=== PATIENT | male | born 1965 | race Caucasian/White ===

== ENCOUNTER 2017-02-18 13:56 | Emergency (ER) | payer MEDICAID, OTHER ==
[~2017-02-18] VITALS: Ht 182.9 cm; Wt 77.1 kg
[~2017-02-18 13:56] MED LIST: SULF1TAB48 PO
[2017-02-18] MEDS ORDERED: HYDROCODONE/APAP 5-325MG TABLET PO ONE (14:15)
[2017-02-18] MEDS ORDERED: TDAP DIPH,PERTUSS,TET VAC/PF 0.5 ML DISP.SYRIN IM ONE ×2 (14:15→14:21)
[2017-02-18] MEDS ORDERED: AMOXICILLIN-CLAVUL 875-125MG TABLET PO ONE (14:15)
[2017-02-18] MEDS ORDERED: AMOXICILLIN-CLAVUL 875-125MG TABLET ONE (14:21)
[2017-02-18] MEDS ORDERED: HYDROCODONE/APAP 5-325MG TABLET ONE (14:21)
--- NOTE | 2017-02-18 14:58 | NUR ---
Patient discharged to home in stable conditon. Written and verbal after care instructions given. Patient verbalizes understanding of instructions. Stressed follow up.
== END 2017-02-18 14:59 | disposition home or self-care (01) ==
LOC: ER 13:57
DX: S60.221A Contusion of right hand, initial encounter (principal); J45.909 Unspecified asthma, uncomplicated; F31.9 Bipolar disorder, unspecified; F10.20 Alcohol dependence, uncomplicated; F19.10 Other psychoactive substance abuse, uncomplicated; C44.90 Unspecified malignant neoplasm of skin, unspecified; M19.90 Unspecified osteoarthritis, unspecified site; W50.3XXA Accidental bite by another person, initial encounter; Y93.89 Activity, other specified; Y99.8 Other external cause status; Y92.89 Other specified places as the place of occurrence of the external cause
CPT/HCPCS: 29125; 73110; 73130; 90471; 90715; 99284; A4663; J7030

== ENCOUNTER 2017-09-26 22:48 | Inpatient (IN) | payer OTHER ==
[~2017-09-26] VITALS: Ht 177.8 cm; Wt 81.6 kg
[2017-09-26] MEDS ORDERED: HYDROMORPHONE 1 MG/1 ML DISP.SYRIN IV ONE (23:00)
[2017-09-26] MEDS ORDERED: PROCHLORPERAZINE EDISYLATE 10 MG/2 ML VIAL IV ONE (23:00)
[2017-09-26] MEDS ORDERED: diphenhydrAMINE 50 MG/1 ML VIAL IV ONE (23:00)
[2017-09-26] MEDS ORDERED: GLUCAGON,HUMAN RECOMBINANT 1 MG VIAL IVP ONE (23:00)
[2017-09-26] MEDS ORDERED: LORAZEPAM 2 MG/1 ML VIAL IV ONE (23:00)
--- NOTE | 2017-09-26 23:00 | NUR ---
Pt ambulated to room with steady gait. Pt c/o feeling like something stuck in his throat. Pt sts he thinks it is a piece of steak. Pt sts he thinks a swallow piece of his dentures a week ago and thinks that might be why the steak is caught in his throat. Pt in severe distress as evidence by restless, tearful, sts " I cant breath", diaphortic, tachycardic, vomiting, and hyperventilating. Pt changed into gown and placed on monitor. Dr. Oneil at bedside for MSE
[2017-09-26] MEDS ORDERED: PROCHLORPERAZINE EDISYLATE 10 MG/2 ML VIAL ONE (23:22)
[2017-09-26] MEDS ORDERED: diphenhydrAMINE 50 MG/1 ML VIAL ONE (23:22)
[2017-09-26] MEDS ORDERED: GLUCAGON,HUMAN RECOMBINANT 1 MG VIAL ONE (23:22)
[2017-09-26] MEDS ORDERED: LORAZEPAM 2 MG/1 ML VIAL ONE (23:23)
[2017-09-26] MEDS ORDERED: HYDROMORPHONE 4 MG/1 ML DISP.SYRIN ONE (23:23)
--- NOTE | 2017-09-26 23:55 | NUR ---
Difficulty establishing IV due to pt's history of IV drug abuse. After multiple attempts 20g to the R. axilla obtained. Labs drawn and sent. Pt medicated for discomfort, will monitor for effects of medication.
[2017-09-27 00:03] LABS: BASOPHILS # (AUTO) 0.1 K/uL (0.0-8.0); BASOPHILS % (AUTO) 1.6 % (0.0-2.0); EOSINOPHILS # (AUTO) 0.3 K/uL (0.0-0.7); EOSINOPHILS % (AUTO) 4.6 % (0.0-7.0); HEMATOCRIT 39.9 % (40-50); LYMPHOCYTES # (AUTO) 1.2 K/UL (0.8-4.8); LYMPHOCYTES % (AUTO) 18.8 % (20.5-51.5); MEAN CORPUSCULAR HGB CONC 33 g/dL (32.0-37.0); MONOCYTES # (AUTO) 0.5 K/UL (0.1-1.30); MONOCYTES % (AUTO) 7.9 % (0.0-11.0); NEUTROPHILS # (AUTO) 4.5 K/UL (1.8-8.9); NEUTROPHILS % (AUTO) 67.1 % (38.5-71.5); PLATELET COUNT (AUTO) 334 K/UL (150-450); RED BLOOD CELL COUNT(AUTO) 4.64 MIL/UL (4.7-6.1); WHITE BLOOD COUNT (AUTO) 6.6 K/UL (4.0-11.2)
[2017-09-27 00:21] LABS: BILIRUBIN,DIRECT 0.1 mg/dL (0.0-0.2); BILIRUBIN,TOTAL 0.4 mg/dL (0.2-1.0); CREATININE 0.8 mg/dL (0.6-1.3); POTASSIUM 3.3 mmol/L (3.5-5.1); TOTAL PROTEIN, SERUM 8.5 g/dL (6.4-8.2)
--- NOTE | 2017-09-27 00:30 | NUR ---
Pt placed on O2 to maintain sats > 95%. Pt's distress resolved, pt sedated. Pt resting in a position of comfort for self with eyes closed, able to wake with moderate tactile stimulation. No further vomiting noted, pt no longer diaphortic and resp even. Pt NSR on monitor. BP improved from initial reading. Admission pending.
--- NOTE | 2017-09-27 01:29 | NUR ---
[employer] technologist paged for Dr. Oneil
--- NOTE | 2017-09-27 01:30 | NUR ---
Dr. Oneil aware of pt's potassium level. No further orders given to correct. Pt unable to swallow for any PO medication and due to location of IV Dr. Oneil not wanting to given IV medication.
--- NOTE | 2017-09-27 01:39 | NUR ---
Dr. Oneil speaking with Dr. Smith for admission
[2017-09-27] MEDS ORDERED: HYDROMORPHONE 1 MG/1 ML DISP.SYRIN IV PRN (01:45)
[2017-09-27] MEDS ORDERED: ONDANSETRON 4 MG/2 ML VIAL IV PRN (01:45)
[2017-09-27] MEDS ORDERED: ACETAMINOPHEN 650 MG SUPP.RECT RC PRN (01:45)
--- NOTE | 2017-09-27 02:00 | NUR ---
Report given to JYOTI Sage. Preparing to transfer pt to the floor.
[2017-09-27 03:00] VITALS: BP 126/77
--- NOTE | 2017-09-27 03:00 | NUR ---
RN Notes: pt received from ED with a DX of impacted esophageal foreign body. A&O X 3. on room air ,sating well. VSS. connected to the commercial fisher , NSR. denies pain. pt's wants to keep his belongings with him. will continue to monitor for any changes.
[2017-09-27 04:00] VITALS: BP 126/77
[2017-09-27] MEDS: POTASSIUM CHLORIDE 20 MEQ in IV D5/ 0.9% NACL 1,000 ML IV PRN (04:43)
--- NOTE | 2017-09-27 06:35 | NUR ---
END OF SHIFT SUMMERY: pt is A&O X 4, on room air,sating well. VSS, denies pain. still NSR on the media monitor. no acute /cardiac/respiratory distress noted. will continue to monitor and endorse pt to the next nurse to continue the care. Addendum: 09/27/17 at 0644 by CATHERINE CARDENAS RN END OF SHIFT SUMMERY: pt is A&O X 4, on room air,sating well. VSS, denies pain. still NSR on the media monitor. pt refused the AM labs. no acute /cardiac/respiratory distress noted. will continue to monitor and endorse pt to the next nurse to continue the care.
[2017-09-27] MEDS ORDERED: FOLIC ACID 1 MG in IV DEXTROSE 5% 50 ML IV SCH (08:00)
[2017-09-27] MEDS ORDERED: HYDROMORPHONE 4 MG/1 ML DISP.SYRIN IV PRN (08:15)
[2017-09-27] MEDS: FAMOTIDINE. 20 MG/2 ML VIAL IV SCH ×2 (09:24→21:10)
[2017-09-27 10:47] VITALS: BP 131/78
--- NOTE | 2017-09-27 11:30 | NUR ---
Received nursing report from the am nurse
[2017-09-27] MEDS ORDERED: HYDROMORPHONE 4 MG/1 ML DISP.SYRIN IM PRN (14:15)
--- NOTE | 2017-09-27 15:00 | NUR ---
midline upper right arm 18g placement
[2017-09-27 15:54] VITALS: BP 145/88
[2017-09-27] MEDS: LORAZEPAM 2 MG/1 ML VIAL IV PRN ×2 (16:08→21:29)
[2017-09-27] MEDS ORDERED: MORPHINE SULFATE 4 MG/1 ML DISP.SYRIN IM PRN (16:15)
[2017-09-27] MEDS: THIAMINE HCL INJ 100 MG in IV DEXTROSE 5% 50 ML IV SCH (17:50)
--- NOTE | 2017-09-27 18:00 | NUR ---
Thiamine medication administered late. Pharmacy aware. Received client around 1130am. Upper IV line not flushing. Midline insertion on the upper right arm 18g inserted around 1500 hrs.
[2017-09-27] MEDS: MORPHINE SULFATE 4 MG/1 ML DISP.SYRIN IV PRN ×2 (18:11→21:25)
--- NOTE | 2017-09-27 19:17 | NUR ---
client in bed asleep comfortably, no s/s of pain, distress, discomfort or SOB
--- NOTE | 2017-09-27 19:45 | NUR ---
ALERT ORIENTED, CONT ON PAIN MANAGEMENT, MIDLINE ON R UPPER ARM INTACT, CONT TO MONITOR.
[2017-09-27 20:51] VITALS: BP 133/79
[2017-09-28] MEDS: MORPHINE SULFATE 4 MG/1 ML DISP.SYRIN IV PRN ×3 (01:03→08:17)
[2017-09-28] MEDS ORDERED: MORPHINE SULFATE 4 MG/1 ML DISP.SYRIN ONE (01:08)
[2017-09-28] MEDS: LORAZEPAM 2 MG/1 ML VIAL IV PRN ×2 (01:50→11:08)
[2017-09-28] MEDS ORDERED: MORPHINE SULFATE 10 MG/1 ML DISP.SYRIN ONE (04:15)
[2017-09-28 04:32] VITALS: BP 153/93
--- NOTE | 2017-09-28 07:03 | NUR ---
PATIENT SLEPT MOST OF THE NIGHT, CONT ON PAIN MANAGEMENT, CONT TO MONITOR.
--- NOTE | 2017-09-28 07:40 | NUR ---
Received nursing report from the NIGHT nurse PT [email or web address].
[2017-09-28] MEDS: POTASSIUM CHLORIDE 20 MEQ in IV D5/ 0.9% NACL 1,000 ML IV PRN (07:42)
[2017-09-28] MEDS: THIAMINE HCL INJ 100 MG in IV DEXTROSE 5% 50 ML IV SCH (07:47)
[2017-09-28] MEDS: FAMOTIDINE. 20 MG/2 ML VIAL IV SCH (08:12)
--- NOTE | 2017-09-28 08:30 | NUR ---
PT WAS SMOKING IN THE BATHROOM ,NSG SUPER VISOR AND CHARGE NURSE MADE AWARE,EXPLAIN THE PT ABOUT NOT SMOKING IN THE ROOM ,REMOVED THE CIGARETTE AND LITER
[2017-09-28] MEDS ORDERED: FOLIC ACID 1 MG TABLET PO SCH (09:00)
[2017-09-28 11:42] VITALS: BP 157/100
[2017-09-28] MEDS ORDERED: NICOTINE 7 MG/24HR PATCH TD SCH (12:15)
--- NOTE | 2017-09-28 13:41 | NUR ---
PT REFUSING THE TREATMENT AND WANTS TO GO [facility] MADE AWARE AND NURSING WATERMASTER MADE AWARE,D/C MIDLINE
--- NOTE | 2017-09-28 13:43 | NUR ---
PT LEFT AMA ,CUT THE NAME TAG AND D/C THE MIDLINE EXPLAIN THE PT CONTRA INDICATIONS ,PT REFUSED FOR THE TREATMENT AND LEFT THE HOSPITAL VIA WALKING WITH PROPER CLOTHS IN STABLE CONDITION..
== END 2017-09-28 13:45 | disposition left against medical advice (07) | DRG 254 ==
LOC: ER 22:51 → TELE 09-27 00:30 → MED 09-27 14:39
PROVIDERS: ADMIT Internal Medicine; ATTEND Internal Medicine
PROC: 05H533Z Insertion of Infusion Device into Right Subclavian Vein, Percutaneous Approach (ICD-10-PCS; principal; 2017-09-27)
DX: T18.9XXA Foreign body of alimentary tract, part unspecified, initial encounter (principal); E44.0 Moderate protein-calorie malnutrition; E88.09 Other disorders of plasma-protein metabolism, not elsewhere classified; R13.10 Dysphagia, unspecified; E78.5 Hyperlipidemia, unspecified; E86.0 Dehydration; E87.6 Hypokalemia; F17.210 Nicotine dependence, cigarettes, uncomplicated; F41.9 Anxiety disorder, unspecified; J45.909 Unspecified asthma, uncomplicated; X58.XXXA Exposure to other specified factors, initial encounter; Y93.9 Activity, unspecified; Z59.0 Homelessness; L02.413 Cutaneous abscess of right upper limb; Z68.25 Body mass index [BMI] 25.0-25.9, adult; F11.23 Opioid dependence with withdrawal; Y92.9 Unspecified place or not applicable
CPT/HCPCS: 36415; 71010; 74000; 83690; 85025; 93005; A4663; A9150; J0780; J1170; J1200; J1610; J2060; J2270; J2405; J3411; J3480; J3490; J7042; J7060

== ENCOUNTER 2018-12-01 15:54 | Emergency (ER) | payer OTHER ==
[~2018-12-01] VITALS: Ht 177.8 cm; Wt 83.0 kg
--- NOTE | 2018-12-01 16:10 | NUR ---
First contact with patient. Pt is awake,alert and oriented, pt states accidental overdose of Heroin. Pt was given Narcan 4mg in route to ER. Pt refused blood draw, notified.
[2018-12-01] MEDS ORDERED: IV NORMAL SALINE 1000 ML BAG IV ONE (16:15)
[2018-12-01] MEDS ORDERED: QUET100T PO (16:16)
[2018-12-01] MEDS ORDERED: OXCA300T4 PO (16:16)
[2018-12-01] MEDS ORDERED: ALBU18HF2 INH (16:16)
[2018-12-01] MEDS ORDERED: CITA20TA19 PO (16:16)
[2018-12-01] MEDS ORDERED: QUET50TA PO (16:16)
--- NOTE | 2018-12-01 16:45 | NUR ---
[employer] at bedside talking with pt.
--- NOTE | 2018-12-01 17:00 | NUR ---
Pt was offered option for halfway and resources but pt declined. Pt was also offered/provided items in accordance with hospital homeless discharge policy.
--- NOTE | 2018-12-01 17:00 | NUR ---
Patient does not wish to proceed with medical care recommended by . Patient given information related to possible complications, up to and including , which could occur as a result of leaving the hospital at this time. Patient verbalizes understanding of risks involved due to leaving against medical advice. Patient has signed AMA form. Pt ambulated out of ER with steady gait.
[2018-12-01 17:03] VITALS: BP 120/71
== END 2018-12-01 17:08 | disposition left against medical advice (07) ==
LOC: ER 15:54
DX: T40.1X1A Poisoning by heroin, accidental (unintentional), initial encounter (principal); J45.909 Unspecified asthma, uncomplicated; Z79.899 Other long term (current) drug therapy; Z59.0 Homelessness; Y92.89 Other specified places as the place of occurrence of the external cause
CPT/HCPCS: 93005; A4663

== ENCOUNTER 2019-09-29 22:17 | Emergency (ER) | payer OTHER ==
[~2019-09-29] VITALS: Ht 177.8 cm; Wt 79.4 kg
[~2019-09-29 22:17] MED LIST changes: +ALBU18HF2 INH; +CITA20TA19 PO; +OXCA300T4 PO; +QUET100T PO; +QUET50TA PO; -SULF1TAB48 PO
--- NOTE | 2019-09-29 22:30 | NUR ---
PT AMBULATORY ABLE TO SPEAK CLEAR AND COMPLETE SENTENCES CAME IN C/O OF ABSCESS, MULTIPLE ON BOTH DELTOIDS PT DESCRIBED 6-8/10 PAIN ON BOTH DELTOIDS, +ERYTHEMA AND MULTIPLE OPEN CIRCULAR WOUNDS, OF NOTE, PT STATES HE STARTED 7WKS AGO RELAPSING ON USING RECREATIONAL DRUGS PER IM ON BOTH DELTOIDS
[2019-09-29] MEDS ORDERED: LIDOCAINE 1%-EPI 1:100,000 20 ML VIAL TP ONE (22:45)
[2019-09-29] MEDS ORDERED: IBUPROFEN 600 MG TABLET PO ONE (22:45)
[2019-09-29] MEDS ORDERED: SULFAMETH/TRIMETH 800/160 MG TABLET PO ONE (22:45)
[2019-09-29] MEDS ORDERED: CEphaleXIN 500 MG CAPSULE PO ONE (22:45)
[2019-09-29] MEDS ORDERED: CEphaleXIN 500 MG CAPSULE ONE (22:49)
[2019-09-29] MEDS ORDERED: SULFAMETH/TRIMETH 800/160 MG TABLET ONE (22:49)
[2019-09-29] MEDS ORDERED: IBUPROFEN 600 MG TABLET ONE (22:49)
[2019-09-29] MEDS ORDERED: LIDOCAINE 1%-EPI 1:100,000 20 ML VIAL ONE (22:52)
--- NOTE | 2019-09-29 23:23 | NUR ---
MD AT BEDSIDE FOR I&D OF ABSCESS(MULTIPLE) ON BOTH DELTOIDS IRRIGATION DONE BY RN PT KEPT WARM DRY AND COMFORTABLE
--- NOTE | 2019-09-29 23:37 | NUR ---
WONDS DRESSED. COVERED WITH GAUZE AND TAPE PT ABLE TO TOLERATE PROCEDURE HOMELESS DISCHERGE WAIVER SIGNED Patient discharged to home in stable conditon. Written and verbal after care instructions given. Patient verbalizes understanding of instructions. AMBULATORY STABLE GAIT
[2019-09-29 23:39] VITALS: BP 142/82
== END 2019-09-29 23:39 | disposition home or self-care (01) ==
LOC: ER 22:18
DX: L02.414 Cutaneous abscess of left upper limb (principal); L02.413 Cutaneous abscess of right upper limb; F11.10 Opioid abuse, uncomplicated; J45.909 Unspecified asthma, uncomplicated; F31.9 Bipolar disorder, unspecified; Z59.0 Homelessness; Z79.899 Other long term (current) drug therapy
CPT/HCPCS: 10061; 99284; J3490; A4217; A4663

== ENCOUNTER 2019-10-04 10:39 | Emergency (ER) | payer OTHER ==
[~2019-10-04] VITALS: Ht 177.8 cm; Wt 81.6 kg
[2019-10-04] MEDS ORDERED: IBUPROFEN 800 MG TABLET ONE (11:00)
[2019-10-04] MEDS ORDERED: IBUPROFEN 800 MG TABLET PO ONE (11:00)
--- NOTE | 2019-10-04 11:10 | NUR ---
pt requested some med for ahakiness. notified.
[2019-10-04] MEDS ORDERED: LORAZEPAM 0.5 MG TABLET PO ONE (11:15)
[2019-10-04] MEDS ORDERED: LORAZEPAM 1 MG TABLET ONE (11:17)
--- NOTE | 2019-10-04 11:20 | NUR ---
Patient discharged to home in stable conditon. Written and verbal after care instructions given. Patient verbalizes understanding of instructions.pt walks in steady gait. pt called for ride.
== END 2019-10-04 11:20 | disposition home or self-care (01) ==
LOC: ER 10:39
DX: Z48.01 Encounter for change or removal of surgical wound dressing (principal); F11.10 Opioid abuse, uncomplicated; J45.909 Unspecified asthma, uncomplicated; F31.9 Bipolar disorder, unspecified; F17.200 Nicotine dependence, unspecified, uncomplicated; Z59.0 Homelessness; Z79.899 Other long term (current) drug therapy
CPT/HCPCS: A4217; A4663

== ENCOUNTER 2019-12-26 22:07 | Emergency (ER) | payer OTHER ==
[~2019-12-26] VITALS: Ht 177.8 cm; Wt 81.6 kg
--- NOTE | 2019-12-26 22:20 | NUR ---
Dr Roberts into eval patient.
[2019-12-26 23:08] LABS: BASOPHILS # (AUTO) 0.1 K/uL (0.0-8.0); BASOPHILS % (AUTO) 0.7 % (0.0-2.0); EOSINOPHILS # (AUTO) 0.1 K/uL (0.0-0.7); EOSINOPHILS % (AUTO) 0.7 % (0.0-7.0); HEMATOCRIT 39.8 % (36.7-47.1); HEMOGLOBIN 13.7 g/dL (12.5-16.3); LYMPHOCYTES % (AUTO) 10.3 % (20.5-51.5); MEAN CORPUSCULAR HEMOGLOBIN 30.1 uug (23.8-33.4); MEAN CORPUSCULAR HGB CONC 34 g/dL (32.5-36.3); MEAN CORPUSCULAR VOLUME 87.6 fL (73.0-96.2); MONOCYTES # (AUTO) 0.8 K/uL (2.0-10.0); MONOCYTES % (AUTO) 7.7 % (0.0-11.0); NEUTROPHILS % (AUTO) 80.6 % (38.5-71.5); PLATELET COUNT (AUTO) 320 K/uL (152-348); RED BLOOD CELL COUNT(AUTO) 4.54 MIL/uL (4.06-5.63); WHITE BLOOD COUNT (AUTO) 9.9 K/uL (3.6-10.2)
[2019-12-26 23:15] LABS: POTASSIUM 3.6 mmol/L (3.5-5.1)
[2019-12-26] MEDS ORDERED: LIDOCAINE HCL 1% 20 ML VIAL ONE (23:26)
[2019-12-26] MEDS ORDERED: CEFTRIAXONE 1 G VIAL ONE (23:26)
[2019-12-26] MEDS ORDERED: CEFTRIAXONE 1 G VIAL IM ONE (23:30)
[2019-12-26 23:38] VITALS: BP 155/92
--- NOTE | 2019-12-26 23:41 | NUR ---
Patient given written and verbal discharge instructions. Patient verbalizes understanding of instructions. Patient is ambulatory with steady gait. Refuses offer of prison placement. Patient given list of available shelters in surrounding area.
== END 2019-12-26 23:41 | disposition home or self-care (01) ==
LOC: ER 22:09
DX: J06.9 Acute upper respiratory infection, unspecified (principal); J45.909 Unspecified asthma, uncomplicated; Z60.2 Problems related to living alone; Z79.899 Other long term (current) drug therapy
CPT/HCPCS: 36415; 71045; 80048; 85025; 96372; 99284; J0696; J3490; A4663